=== PATIENT | female | born 1995 | race Two or more races ===

== ENCOUNTER 2023-03-13 15:36 | Outpatient (CLI) | payer OTHER ==
[2023-03-13] MEDS ORDERED: IRON18 MG PO (18:44)
[2023-03-13] MEDS ORDERED: PRENA1 TRUE CO1 EACH (18:44)
[2023-03-13] MEDS ORDERED: CALCIUM500 M1 (18:44)
== END 2023-03-13 17:01 | disposition home or self-care (01) ==
LOC: PRENATAL 15:36
PROVIDERS: ATTEND Obstetrics & Gynecology Maternal & Fetal Medicine
DX: O35.3XX0 Maternal care for (suspected) damage to fetus from viral disease in mother, not applicable or unspecified (principal); O36.8199 Decreased fetal movements, unspecified trimester, other fetus; Z3A.33 33 weeks gestation of pregnancy

== ENCOUNTER 2023-03-13 17:59 | Inpatient (IN) | payer OTHER ==
[~2023-03-13] VITALS: Ht 157.5 cm; Wt 74.8 kg
[2023-03-13] MEDS ORDERED: IRON18 MG PO (18:44)
[2023-03-13] MEDS ORDERED: CALCIUM500 M1 (18:44)
[2023-03-13] MEDS ORDERED: PRENA1 TRUE CO1 EACH (18:44)
== END 2023-03-14 20:06 | disposition home or self-care (01) | DRG 833 ==
LOC: LDR 17:59
PROVIDERS: ADMIT Obstetrics & Gynecology Obstetrics; ATTEND Obstetrics & Gynecology Obstetrics
PROC: 4A1HXCZ Monitoring of Products of Conception, Cardiac Rate, External Approach (ICD-10-PCS; principal; 2023-03-13)
DX: O60.03 Preterm labor without delivery, third trimester (principal); Z3A.33 33 weeks gestation of pregnancy; Z20.822 Contact with and (suspected) exposure to COVID-19

== ENCOUNTER 2023-03-20 11:01 | Outpatient (CLI) | payer OTHER ==
[~2023-03-20 11:01] MED LIST: CALCIUM500 M1; IRON18 MG PO; PRENA1 TRUE CO1 EACH
== END 2023-03-20 17:46 | disposition home or self-care (01) ==
LOC: PRENATAL 11:01
PROVIDERS: ATTEND Obstetrics & Gynecology Maternal & Fetal Medicine
DX: O36.8199 Decreased fetal movements, unspecified trimester, other fetus (principal); O36.5990 Maternal care for other known or suspected poor fetal growth, unspecified trimester, not applicable or unspecified; Z3A.34 34 weeks gestation of pregnancy

== ENCOUNTER 2023-03-29 10:48 | Outpatient (CLI) | payer OTHER | END 2023-03-29 16:09 | disposition home or self-care (01) | LOC: PRENATAL 10:48 | PROVIDERS: ATTEND Obstetrics & Gynecology Maternal & Fetal Medicine | DX: O36.8199 Decreased fetal movements, unspecified trimester, other fetus (principal); O36.5990 Maternal care for other known or suspected poor fetal growth, unspecified trimester, not applicable or unspecified; Z3A.36 36 weeks gestation of pregnancy ==

== ENCOUNTER 2023-04-05 15:05 | Outpatient (CLI) | payer OTHER | END 2023-04-05 16:42 | disposition home or self-care (01) | LOC: PRENATAL 15:05 | PROVIDERS: ATTEND Obstetrics & Gynecology Maternal & Fetal Medicine | DX: O26.849 Uterine size-date discrepancy, unspecified trimester (principal); O36.8199 Decreased fetal movements, unspecified trimester, other fetus; O36.5990 Maternal care for other known or suspected poor fetal growth, unspecified trimester, not applicable or unspecified; Z3A.37 37 weeks gestation of pregnancy ==

== ENCOUNTER 2023-04-26 13:47 | Inpatient (IN) | payer OTHER ==
[~2023-04-26] VITALS: Ht 157.5 cm; Wt 71.7 kg
[2023-04-26 15:21] LABS: URINE APPEARANCE Clear; URINE BILIRRUBIN Negative (NEGATIVE); URINE BLOOD Negative; URINE COLOR Yellow; URINE GLUCOSE Negative (NEGATIVE); URINE LEUKOCYTE Trace; URINE NITRATE Negative; URINE PROTEIN Negative (NEGATIVE); URINE UROBILINOGEN 0.2 E.U./dl
[2023-04-26 15:22] LABS: URINE BACTERIA 1906.1 uL (0.0-1933); URINE EPITHELIAL CELLS 10.6 uL (0.0-38.8); URINE RBC 5.3 uL (0.0-20.8); URINE WBC 7.8 uL (0.0-23.2)
[2023-04-26 15:29] LABS: HEMATOCRIT 34.8 % (36.0-45.00); HEMOGLOBIN 11.3 g/dL (12.0-15.00); MEAN CELL VOLUME 70.6 fL (80.00-100.00); MEAN CORPUSCULAR HGB CONC 32.5 g/dl (32.0-36.0); PLATELET COUNT 154 K/uL (150-450); RED BLOOD COUNT 4.92 M/uL (4.00-6.00); RED CELL DISTRIBUTION WIDTH 15.9 % (11.5-14.5)
[2023-04-26 15:43] LABS: INR 0.94; PARTIAL THROMBOPLASTIN TIME 27.1 SECONDS (22.0-34.0); PROTHROMBIN TIME 9.9 SECONDS (9.0-11.5)
[2023-04-26 16:05] LABS: ALBUMIN 2.8 gm/dL (3.4-5.0); BILIRUBIN TOTAL 0.4 mg/dL (0.3-1.2); CALCIUM 8.9 mg/dL (8.5-10.1); CREATININE SERUM 0.55 mg/dL (0.55-1.02); GFR 132.59; GLOBULINA 3.7 G/DL (2.4-3.5); POTASSIUM 4.31 mEq/L (3.5-5.1); TOTAL PROTEIN 6.5 gm/dL (6.4-8.2)
[2023-04-27 19:13] LABS: ABG PH 7.335 (7.35-7.45); ABG pCO2 46.1 mmHg (35-45); BASE EXCESS -2.1 mmol/l; SaO2 25.5 %; Tco2 25.5 mmol/l
[2023-04-27 20:03] LABS: ABG PO2 19.2 mmHg (80-100); o2 21 %
== END 2023-04-30 15:57 | disposition home or self-care (01) | DRG 788 ==
LOC: LDR 13:47 → O/R 04-27 17:07 → OB/GYN 04-27 19:40
PROVIDERS: ADMIT Obstetrics & Gynecology Obstetrics; ATTEND Obstetrics & Gynecology Obstetrics
PROC: 3E0P7VZ Introduction of Hormone into Female Reproductive, Via Natural or Artificial Opening (ICD-10-PCS; 2023-04-26)
PROC: 4A1HXCZ Monitoring of Products of Conception, Cardiac Rate, External Approach (ICD-10-PCS; 2023-04-26)
PROC: 3E033VJ Introduction of Other Hormone into Peripheral Vein, Percutaneous Approach (ICD-10-PCS; 2023-04-27)
PROC: 10D00Z1 Extraction of Products of Conception, Low, Open Approach (ICD-10-PCS; principal; 2023-04-27 16:00)
DX: O62.0 Primary inadequate contractions (principal); Z3A.40 40 weeks gestation of pregnancy; Z37.0 Single live birth; Z20.822 Contact with and (suspected) exposure to COVID-19